=== PATIENT | female | born 1980 | race Caucasian/White ===

== ENCOUNTER 2022-12-28 10:49 | Emergency (ER) | payer OTHER ==
[~2022-12-28] VITALS: Ht 160 cm; Wt 61.2 kg
[2022-12-28 11:34] VITALS: BP 118/63; O2SAT 99
== END 2022-12-28 11:34 | disposition home or self-care (01) ==
LOC: ER 10:49
DX: S91.104A Unspecified open wound of right lesser toe(s) without damage to nail, initial encounter (principal); Z88.0 Allergy status to penicillin; X58.XXXA Exposure to other specified factors, initial encounter; Y93.89 Activity, other specified; Y92.89 Other specified places as the place of occurrence of the external cause; Y99.8 Other external cause status
CPT/HCPCS: A4663